=== PATIENT | male | born 1995 | race Caucasian/White ===

== ENCOUNTER 2020-11-11 16:01 | Emergency (ER) | payer OTHER ==
[2020-11-11 16:32] VITALS: BP 149/99; PULSE 90; RESP 18; TEMP 99.1
[2020-11-11] MEDS ORDERED: DIPH,PERTUS(ACELL)TETVAC-LF 0.5 ML VIAL IM ONE (16:41)
[2020-11-11] MEDS ORDERED: LIDOCAINE 1% INJ 10MG/ML (20 ML MDV) SQ ONE (16:41)
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
== END 2020-11-11 18:00 | disposition home or self-care (01) ==
LOC: EC 16:01
DX: S01.511A Laceration without foreign body of lip, initial encounter (principal); Y04.0XXA Assault by unarmed brawl or fight, initial encounter; F12.90 Cannabis use, unspecified, uncomplicated; Z23 Encounter for immunization
CPT/HCPCS: 99282; 12013; 90471; 90715; J2001

== ENCOUNTER 2021-03-25 21:05 | Emergency (ER) | payer OTHER ==
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
[2021-03-25 21:39] VITALS: BP 150/99; PULSE 116; RESP 18; TEMP 97.7
== END 2021-03-25 22:40 | disposition home or self-care (01) ==
LOC: EC 21:05
DX: Z04.1 Encounter for examination and observation following transport accident (principal); F12.90 Cannabis use, unspecified, uncomplicated; V89.2XXA Person injured in unspecified motor-vehicle accident, traffic, initial encounter
CPT/HCPCS: 99284